=== PATIENT | female | born 1950 | race African-American/Black ===

== ENCOUNTER → 2024-04-23 | Outpatient (CLI) | payer OTHER, SELFPAY ==
[2024-04-23 10:46] LABS: Glucose Estimated Average 148 mg/dL (80-131); Hemoglobin A1C 6.8 % Hgb (4.8-6.0)
== END | disposition home or self-care (01) ==
LOC: COPL 09:59
PROVIDERS: PCP Family Medicine; Referring Provider Family Medicine; Visit Provider Family Medicine
DX: E11.9 Type 2 diabetes mellitus without complications (principal)
CPT/HCPCS: 36415; 83036

== ENCOUNTER → 2024-07-31 | Outpatient (CLI) | payer OTHER, SELFPAY ==
--- NOTE | 2024-07-31 11:00 | XR_ITS ---
Examination: Arterial duplex lower extremity study. Date and time of exam: July 31, 2024 1134 hours INDICATIONS: Bilateral leg discoloration pain 6 months week pole cyst left foot compared to right foot on examination one month ago Findings: Duplex sonographic imaging of the lower extremity arteries using B-mode/Soto scale imaging and Doppler spectral analysis and color flow. Ankle brachial indices have been recorded. Right common femoral artery demonstrates triphasic flow. Right superficial femoral artery demonstrates biphasic flow. Right popliteal artery demonstrates biphasic flow. Right posterior tibial artery demonstrated biphasic flow. Right ankle/brachial index is 1.0. Left common femoral artery demonstrates triphasic flow. Left superficial femoral artery demonstrates monophasic flow. Left popliteal artery demonstrates monophasic flow. Left posterior tibial artery demonstrated monophasic flow. Left ankle/brachial index is 0.7. Impression: Significant obstructive arterial disease left lower extremity
== END | disposition home or self-care (01) ==
PROVIDERS: PCP Family Medicine; Referring Provider Family Medicine; Visit Provider Family Medicine
DX: I77.89 Other specified disorders of arteries and arterioles (principal)
CPT/HCPCS: 93925

== ENCOUNTER → 2024-09-10 | Outpatient (CLI) | payer OTHER, SELFPAY ==
--- NOTE | 2024-09-10 11:12 | EKG_ITS ---
[facility] Test Date: 2024-09-10 Pat Name: HUNTER CERVANTES Department: Room: - Gender: Female Label Coder: MAURICE : 1950 Requested By: Petros Linder Order Number: [id number] Reading MD: Petros Linder Measurements Intervals [place] Rate: 87 P: 33 IA: 153 QRS: 36 QRSD: 80 T: 33 QT: 363 QTc: 438 Interpretive Statements SINUS RHYTHM LOW QRS VOLTAGE IN PRECORDIAL LEADS [QRS DEFLECTION < 1.0 mV IN CHEST LEADS] POSSIBLE ANTERIOR MYOCARDIAL INFARCTION , PROBABLY OLD [30 ms Q WAVE IN V3/V4, OR R < 0.2 mV IN V4] No previous ECG available for comparison /[id number]/[email or web address]/[id number].pdf
[2024-09-10 11:38] LABS: Partial Thromboplastin Time 28.3 Seconds (22.0-36.0); Prothrombin Time 10.9 Seconds (9.0-12.2)
[2024-09-10 11:39] LABS: Basophils % (Auto) 1 % (0-2.5); Eosinophils # (Auto) 0.1 Thou/mm3 (0.0-0.5); Eosinophils % (Auto) 2 % (0-10); Hematocrit 43.5 % (36.0-46.0); Hemoglobin 15.4 g/dL (12.0-16.0); Immature Granulocytes % (Auto) 0 % (0-0); Immature Granulocytes Auto 0.02 Thou/mm3 (0.00-0.00); Lymphocytes # (Auto) 2.3 Thou/mm3 (1.0-4.8); Lymphocytes % (Auto) 39 % (10-50); Mean Corpuscular HGB Conc 35.4 g/dl (31.0-37.0); Mean Corpuscular Hemoglobin 30.9 pg (25.0-35.0); Mean Corpuscular Volume 87 fL (80-100); Monocytes # (Auto) 0.7 Thou/mm3 (0.0-0.8); Monocytes % (Auto) 11 % (0-12); Neutrophils # (Auto) 2.7 Thou/mm3 (1.8-7.7); Neutrophils % (Auto) 47 % (37-80); Nucleated Red Blood Cell % 0 /100 WBC (0); Platelet Count 235 Thou/mm3 (140-440); RDW Standard Deviation 43.4 fL (36.4-46.3); Red Blood Count 4.99 Miln/mm3 (4.00-5.20); White Blood Count 5.8 Thou/mm3 (3.6-11.0)
[2024-09-10 11:48] LABS: Alanine Aminotransferase 14 U/L (10-49); Albumin, Serum 4.7 gm/dL (3.4-4.8); Albumin/Globulin Ratio 1.8 (1.2-2.2); Alkaline Phosphatase 60 U/L (46-116); Anion Gap 9 (7-16); BUN/Creatinine Ratio 18 Ratio (12-20); Bilirubin,Total 0.5 mg/dL (0.3-1.2); Blood Urea Nitrogen 22 mg/dL (9-23); Calcium 10.1 mg/dL (8.3-10.6); Calcium (Corrected) 10.1 mg/dL (8.5-10.1); Carbon Dioxide 30.3 mMol/L (20.0-31.0); Chloride 105 mMol/L (98-107); Creatinine (Component) 1.2 mg/dL (0.6-1.3); Globulin 2.6 gm/dL (2.3-3.5); Glucose 112 mg/dL (74-106); Osmolality,Calculated 291 (275-295); Potassium 4.4 mMol/L (3.4-5.1); Sodium 144 mMol/L (136-145); Total Protein 7.3 gm/dL (5.7-8.2); eGFR 48 See Note
== END | disposition home or self-care (01) ==
LOC: COPL 10:38
PROVIDERS: PCP Family Medicine; Referring Provider Student in an Organized Health Care Education/Training Program; Visit Provider Student in an Organized Health Care Education/Training Program
DX: Z01.818 Encounter for other preprocedural examination (principal); I73.9 Peripheral vascular disease, unspecified; Z79.01 Long term (current) use of anticoagulants
CPT/HCPCS: 36415; 80053; 85025; 85610; 85730; 93005

== ENCOUNTER → 2025-01-13 | Outpatient (CLI) | payer OTHER, SELFPAY ==
[2025-01-13 11:04] LABS: Basophils # (Auto) 0.0 Thou/mm3 (0.0-0.2); Basophils % (Auto) 1 % (0-2.5); Eosinophils # (Auto) 0.2 Thou/mm3 (0.0-0.5); Eosinophils % (Auto) 2 % (0-10); Hematocrit 45.8 % (36.0-46.0); Hemoglobin 15.5 g/dL (12.0-16.0); Immature Granulocytes Auto 0.08 Thou/mm3 (0.00-0.00); Lymphocytes # (Auto) 1.9 Thou/mm3 (1.0-4.8); Lymphocytes % (Auto) 26 % (10-50); Mean Corpuscular HGB Conc 33.8 g/dl (31.0-37.0); Mean Corpuscular Hemoglobin 30.2 pg (25.0-35.0); Mean Corpuscular Volume 89 fL (80-100); Monocytes # (Auto) 0.7 Thou/mm3 (0.0-0.8); Monocytes % (Auto) 10 % (0-12); Neutrophils # (Auto) 4.6 Thou/mm3 (1.8-7.7); Neutrophils % (Auto) 61 % (37-80); Nucleated Red Blood Cell # 0.00 Thou/mm3 (0.00-0.00); Nucleated Red Blood Cell % 0 /100 WBC (0); Platelet Count 216 Thou/mm3 (140-440); RDW Standard Deviation 45.8 fL (36.4-46.3); Red Blood Count 5.14 Miln/mm3 (4.00-5.20); White Blood Count 7.5 Thou/mm3 (3.6-11.0)
[2025-01-13 11:20] LABS: Glucose Estimated Average 137 mg/dL (80-131); Hemoglobin A1C 6.4 % Hgb (4.8-6.0)
[2025-01-13 11:24] LABS: Alanine Aminotransferase 15 U/L (10-49); Albumin, Serum 4.3 gm/dL (3.4-4.8); Albumin/Globulin Ratio 1.7 (1.2-2.2); Alkaline Phosphatase 59 U/L (46-116); Anion Gap 12 (7-16); Aspartate Amino Transferase 22 U/L (0-34); BUN/Creatinine Ratio 11 Ratio (12-20); Bilirubin,Total 0.3 mg/dL (0.3-1.2); Blood Urea Nitrogen 11 mg/dL (9-23); Calcium 9.7 mg/dL (8.3-10.6); Calcium (Corrected) 9.7 mg/dL (8.5-10.1); Carbon Dioxide 27.3 mMol/L (20.0-31.0); Cardiac Risk Estimate 2.9 RATIO (3.7-5.6); Chloride 103 mMol/L (98-107); Cholesterol 154 mg/dL (132-200); Creatinine (Component) 1.0 mg/dL (0.6-1.3); Globulin 2.6 gm/dL (2.3-3.5); Glucose 113 mg/dL (74-106); HDL Cholesterol 53 mg/dL (40-60); LDL Cholesterol,Calculated 77 mg/dL (0-130); Magnesium 1.9 mg/dL (1.6-2.6); Osmolality,Calculated 283 (275-295); Potassium 4.5 mMol/L (3.4-5.1); Sodium 142 mMol/L (136-145); Total Protein 6.9 gm/dL (5.7-8.2); Triglycerides 121 mg/dL (30-150); eGFR 59 See Note
[2025-01-13 11:25] LABS: Creatinine MALB Rnd Ur 115 mg/dL (30-125); Microalbumin Creat Ratio 4 mg/gCrea (<30); Microalbumin, Random Urine 5 mg/L (0-300)
== END | disposition home or self-care (01) ==
LOC: COPL 10:06
PROVIDERS: PCP Internal Medicine; Referring Provider Internal Medicine; Visit Provider Internal Medicine
DX: E03.9 Hypothyroidism, unspecified (principal); I10 Essential (primary) hypertension; E11.9 Type 2 diabetes mellitus without complications; Z79.899 Other long term (current) drug therapy
CPT/HCPCS: 36415; 80053; 80061; 82043; 82570; 83036; 83735; 85025

== ENCOUNTER → 2025-02-12 | Outpatient (CLI) | payer OTHER, SELFPAY ==
--- NOTE | 2025-02-12 12:51 | XR_ITS ---
Examination: Lumbar spine, 5 views Technique: Lumbar spine AP, lateral, coned lateral lower lumbar spine, bilateral obliques 5 views Exam date and time: February 12, 2025, 1315 hours INDICATIONS: Lower back pain 1 month. FINDINGS: Severe osteopenia Advanced diffuse facet arthropathy No lumbar fracture Mild lumbar spondylosis Mild to moderate diffuse lumbar degenerative disc disease IMPRESSION: Mild to moderate diffuse lumbar degenerative disc disease
--- NOTE | 2025-02-12 13:45 | XR_ITS ---
Examination: Screening digital mammography, bilateral Computer aided detection 3-D breast Tomosynthesis, bilateral Date and time of exam: February 12, 2025, 1239 hours, compared to mammograms dating to January 09, 2018 Indication: Screening Technique: Nonmagnified MLO, CC views of the breasts to been obtained, reconstructed from 3-D Tomosynthesis images. R2 computer aided detection program utilized for evaluation of suspicious masses and/or abnormal calcifications. 3-D Tomosynthesis images obtained. Findings: Scattered areas of fibroglandular density. Benign calcifications. No interval suspicious masses Impression: BI-RADS category II: Benign Findings. Recommend 1 year follow-up mammogram.
== END | disposition home or self-care (01) ==
PROVIDERS: PCP Internal Medicine; Referring Provider Internal Medicine; Visit Provider Internal Medicine
DX: Z12.31 Encounter for screening mammogram for malignant neoplasm of breast (principal); R92.323 Mammographic fibroglandular density, bilateral breasts; R92.1 Mammographic calcification found on diagnostic imaging of breast; M51.360 Other intervertebral disc degeneration, lumbar region with discogenic back pain only
CPT/HCPCS: 72110; 77063; 77067

== ENCOUNTER 2025-02-22 11:15 | Emergency (ER) | payer OTHER, SELFPAY ==
--- NOTE | 2025-02-22 12:07 | XR_ITS ---
EXAMINATION: US venous doppler LE RT HISTORY: r/o dvt COMPARISON: None. FINDINGS: Tirado scale, color doppler, and spectral waveforms of the right lower extremity veins. The imaged veins are unremarkable without evidence of internal thrombus. Spectral Doppler imaging demonstrates normal wave forms. The overlying soft tissues are unremarkable. IMPRESSION: Negative for deep venous thrombosis.
[2025-02-22 12:08] VITALS: BP 128/81; PULSE 100; RESP 18; TEMP 36.6; O2SAT 98
[2025-02-22 12:09] VITALS: BMI 33.8
--- NOTE | 2025-02-22 12:09 | PD.EDRME ---
Rapid Medical Screening Exam RME Arrival date/time: 02/22/25 11:15 74-year-old female with a history of hypertension, hypothyroidism, presents to the emergency room with a chief complaint of right lower extremity swelling and tenderness x 3 days. Patient was sent to the emergency room by her primary care provider to rule out DVT. I have greeted and performed a focused initial assessment of this patient. A comprehensive ED assessment and evaluation of the patient, analysis of all test results, and completion of the medical decision making process will be conducted by additional ED providers. Chief Complaint: Extremity Injury, Lower Time Seen by Provider: 02/22/25 11:28 Vital signs reviewed by provider: No Exam: Right lower extremity tenderness and swelling. Negative Homans Clear bilateral lung sounds no shortness of breath Clinical Impression: DVT/cellulitis/leg pain
[2025-02-22 12:50] LABS: Basophils # (Auto) 0.0 Thou/mm3 (0.0-0.2); Basophils % (Auto) 0 % (0-2.5); Eosinophils # (Auto) 0.0 Thou/mm3 (0.0-0.5); Eosinophils % (Auto) 1 % (0-10); Hematocrit 50.6 % (36.0-46.0); Hemoglobin 17.5 g/dL (12.0-16.0); Immature Granulocytes Auto 0.02 Thou/mm3 (0.00-0.00); Lymphocytes # (Auto) 2.3 Thou/mm3 (1.0-4.8); Lymphocytes % (Auto) 35 % (10-50); Mean Corpuscular HGB Conc 34.6 g/dl (31.0-37.0); Mean Corpuscular Hemoglobin 29.8 pg (25.0-35.0); Mean Corpuscular Volume 86 fL (80-100); Monocytes # (Auto) 0.8 Thou/mm3 (0.0-0.8); Monocytes % (Auto) 12 % (0-12); Neutrophils # (Auto) 3.4 Thou/mm3 (1.8-7.7); Neutrophils % (Auto) 52 % (37-80); Nucleated Red Blood Cell # 0.00 Thou/mm3 (0.00-0.00); Nucleated Red Blood Cell % 0 /100 WBC (0); Platelet Count 230 Thou/mm3 (140-440); RDW Standard Deviation 43.3 fL (36.4-46.3); Red Blood Count 5.87 Miln/mm3 (4.00-5.20); White Blood Count 6.5 Thou/mm3 (3.6-11.0)
[2025-02-22 13:07] LABS: Alanine Aminotransferase 15 U/L (10-49); Albumin, Serum 5.1 gm/dL (3.4-4.8); Albumin/Globulin Ratio 1.7 (1.2-2.2); Alkaline Phosphatase 60 U/L (46-116); Anion Gap 10 (7-16); Aspartate Amino Transferase 23 U/L (0-34); BUN/Creatinine Ratio 13 Ratio (12-20); Bilirubin,Total 0.7 mg/dL (0.3-1.2); Blood Urea Nitrogen 15 mg/dL (9-23); Calcium 9.8 mg/dL (8.3-10.6); Calcium (Corrected) 9.8 mg/dL (8.5-10.1); Carbon Dioxide 29.8 mMol/L (20.0-31.0); Chloride 98 mMol/L (98-107); Creatinine (Component) 1.2 mg/dL (0.6-1.3); Estimated Creatinine Clearance 39.7 mL/min (>60); Globulin 3.0 gm/dL (2.3-3.5); Glucose 114 mg/dL (74-106); INR 1.0 (0.9-1.3); Osmolality,Calculated 277 (275-295); Partial Thromboplastin Time 25.4 Seconds (22.0-36.0); Potassium 4.0 mMol/L (3.4-5.1); Prothrombin Time 10.6 Seconds (9.0-12.2); Sodium 138 mMol/L (136-145); Total Protein 8.1 gm/dL (5.7-8.2); eGFR 48 See Note
--- NOTE | 2025-02-22 13:48 | EDNOTE_ITS ---
ED General RME/HPI General Chief complaint: Extremity Injury, Lower Stated complaint: R) LEG PAIN; R/O DVT; SENT BY PROVIDER Time Seen by Provider: 02/22/25 11:28 Arrival date/time: 02/22/25 11:15 CC: Right leg pain for approximately several days, patient said localized pain is a 3-4 out of 10 scale. Patient states she has had surgery on her left leg but not on her right. Patient states she was referred by her doctor to rule out a clot. Patient denies numbness tingling in the leg denies any fever chills was able to ambulate with a walker without complication. RME / HPI RME / HPI narrative: 02/22/25 11:15 74-year-old female with a history of hypertension, hypothyroidism, presents to the emergency room with a chief complaint of right lower extremity swelling and tenderness x 3 days. Patient was sent to the emergency room by her primary care provider to rule out DVT. I have greeted and performed a focused initial assessment of this patient. A comprehensive ED assessment and evaluation of the patient, analysis of all test results, and completion of the medical decision making process will be conducted by additional ED providers. Exam: Right lower extremity tenderness and swelling. Negative Homans Clear bilateral lung sounds no shortness of breath Impression: DVT/cellulitis/leg pain Related Data Home Medications ?Medication ?Instructions ?Recorded ?Confirmed Levothyroxine * (SYNTHROID *) 50 mcg PO QDAY #0 tabs 0 11/13/13 09/21/20 hydrochlorothiazide 25 mg tablet 25 mg PO QAM #0 tabs 10/19/15 09/21/20 Previous Rx's ?Medication ?Instructions ?Recorded meloxicam 7.5 mg tablet 7.5 mg PO QDAY #10 tabs 01/31 07/24 Allergies Allergy/AdvReac Type Severity Reaction Status Date / Time DATES FRUIT Allergy Severe WHOLE BODY Uncoded 02/22/25 11:18 ITCHING Review of Systems Review of Systems Narrative Review of Systems: GEN: No fever, no chills, no weight loss EYES: No discharge, no visual changes, no pain HEENT: No ear pain, no congestion, no sore throat PULM: No shortness of breath, no cough, no congestion CV: No chest pain, no dyspnea on exertion, no palpitations GI: No nausea, no vomiting, no diarrhea, no pain, no constipation : No frequency, no urgency, no dysuria MUSC/SKEL: No joint pain, no back pain SKIN: No rash PSYCH: No hallucinations, no depression HEME/LYMPH: No easy bleeding or bruising tendencies NEURO: No weakness, no headache Past Medical History Past Medical History NEUROLOGIC: Negative Neurological Disorders or Seizures CARDIAC: Positive Cardiac Disorders, Congestive Heart Failure and Hypertension RESPIRATORY: Negative Chronic Obstructive Pulmonary Disease (COPD) GASTROINTESTINAL: Positive Gastrointestinal Disorders and Obesity GENITOURINARY: Negative Genitourinary Disorders or Renal Disease MUSCULOSKELETAL: Positive Musculoskeletal Disorders and Arthritis ENT: Positive Cataracts (bilat) ENDOCRINE: Positive Endocrine Disorders and Hypothyroidism; Negative Diabetes Mellitus Type 1 or Diabetes Mellitus Type 2 HEMATOLOGIC: Negative Blood Disorders OTHER HISTORY: Positive Hospitalization and Falls; Negative Autoimmune Disease, Blood Transfusions, Anesthesia Reactions or Cancer Surgical History SURGICAL: Positive Joint Replacement (bilat) and Section Social History SMOKING STATUS: Never smoker ED Exam Narrative Physical exam: [General: Obese not in in any acute distress Head normocephalic HEENT: Within acceptable limits Neck is supple nontender Chest equal chest rise nontender to palpation Respiratory: Clear to auscultation no wheezes crackles or rubs CV: Rate rhythm is regular no murmurs rubs or clicks Abdomen is distended secondary to body habitus soft nontender no masses positive bowel sounds all 4 quadrants Back: No CVA tenderness no spinous process tenderness from cervical spine thoracic and lumbar spine Skin: Intact no petechiae rash induration ulceration or crepitus Extremities: Mild tenderness to the medial thigh of the right leg, also mild tenderness to the gastric mimickers and soleus muscles. Moving all other extremities against resistance cap refill less than 2 seconds neurosensory intact Neuro: Awake alert oriented x3 Glascow coma 15 no focal deficits] Course Quality Measures none Orders Category Date Time Status US venous doppler LE RT Stat Exams 02/22/25 12:07 Completed CBC Stat Lab 02/22/25 12:31 Completed CMP [Comprehensive Metabolic Panel] Stat Lab 02/22/25 12:31 Completed PT [Prothrombin Time with INR] Stat Lab 02/22/25 12:31 Completed PTT [Partial Thromboplastin Time] Stat Lab 02/22/25 12:31 Completed Ketorolac Inj [Toradol Inj] Med 02/22/25 13:47 Once 15 mg IM X1 ONE Vital Signs Vital signs: Vital Signs Temperature 97.9 F 02/22/25 12:08 Pulse Rate 100 02/22/25 12:08 Respiratory Rate 18 02/22/25 12:08 Blood Pressure 128/81 02/22/25 12:08 Pulse Oximetry (%) 98 02/22/25 12:08 Oxygen Delivery Method Room Air 02/22/25 12:08 Discharge Plan Plan Patient Disposition: HOME (Self Care) Patient condition on transfer: Stable Prescriptions/Referrals Prescriptions/Med Rec: New meloxicam 7.5 mg tablet 7.5 mg PO QDAY Qty: 10 0RF No Action Levothyroxine * (SYNTHROID *) 50 MCG tablet 50 mcg PO QDAY Qty: 0 hydrochlorothiazide 25 MG tablet 25 mg PO QAM Qty: 0 Referrals: Micheal Nolan [Primary Care Provider] - In 1 week Problem List Clinical Impression: Leg pain Patient/Caregiver Discharge Instructions Education Materials: ED Pain, Acute, Uncertain Cause Additional Instructions: Follow-up with your primary care doctor if there is worsening of symptoms return the emergency room for reevaluation. Print Language: Burmese Stand Alone Forms: Marlen Award Info., Patient Portal Info Letter, Work/School Release PA/[employer] Supervising Physician PA/[employer] Supervising Physician: Blu George ENP [facility] Clinical Information Provided by: patient Medical Records reviewed [facility] Meds/Rx considered, not ordered None Labs/Rad/Tests considered, not ordered None Chronic Illness/Social Conditions Explain: Recent left lower extremity surgery EKG EKG not done Labs Labs: interpreted by il Lab(s) Interpretation(s): CBC shows no acute leukocytosis the patient is hemoconcentrated with a hemoglobin of 17.5 and hematocrit of 50.6. No thrombocytopenia Coags within acceptable limits CMP shows no significant electrolyte imbalances renal impairment transaminitis or T. bili elevation Imaging Imaging interpretation: interpreted by il Imaging Interpretation(s): Doppler of the right leg shows no DVT. Medication Administration(s) Medication Administration History Ketorolac Tromethamine (Ketorolac Inj 30 Mg/Ml Vial) 15 mg IM X1 ONE Stop: 02/22/25 13:48
[2025-02-22] MEDS: KETOROLAC INJ 30 MG/ML VIAL 15 MG IM (13:54)
== END 2025-02-22 14:00 | disposition home or self-care (01) ==
PROVIDERS: Nurse Practitioner Family; Emergency Provider Emergency Medicine; PCP Internal Medicine
DX: M79.604 Pain in right leg (principal)
CPT/HCPCS: 36415; 80053; 85025; 85610; 85730; 93971; 96372; 99283; J1885

== ENCOUNTER → 2025-03-10 | Outpatient (CLI) | payer OTHER, SELFPAY ==
--- NOTE | 2025-03-10 | XR_ITS ---
Examination: Right hip AP, lateral, AP pelvis 3 views Technique: Hip AP lateral, AP pelvis, 3 views Exam date and time: October 08, 2024, total 21 hours INDICATIONS: Right leg pain 8 years. FINDINGS: Bilateral total hip arthroplasties Satisfactory alignment No fractures No loosening of the prosthetic components Extensive ossification lateral to the left hip joint IMPRESSION: Bilateral total hip arthroplasties with satisfactory alignment.
[2025-03-10 13:20] LABS: Basophils # (Auto) 0.0 Thou/mm3 (0.0-0.2); Basophils % (Auto) 1 % (0-2.5); Eosinophils # (Auto) 0.1 Thou/mm3 (0.0-0.5); Eosinophils % (Auto) 1 % (0-10); Hematocrit 46.4 % (36.0-46.0); Hemoglobin 15.8 g/dL (12.0-16.0); Immature Granulocytes Auto 0.02 Thou/mm3 (0.00-0.00); Lymphocytes # (Auto) 2.1 Thou/mm3 (1.0-4.8); Lymphocytes % (Auto) 33 % (10-50); Mean Corpuscular HGB Conc 34.1 g/dl (31.0-37.0); Mean Corpuscular Hemoglobin 29.9 pg (25.0-35.0); Mean Corpuscular Volume 88 fL (80-100); Monocytes # (Auto) 0.7 Thou/mm3 (0.0-0.8); Monocytes % (Auto) 11 % (0-12); Neutrophils # (Auto) 3.5 Thou/mm3 (1.8-7.7); Neutrophils % (Auto) 54 % (37-80); Nucleated Red Blood Cell # 0.00 Thou/mm3 (0.00-0.00); Nucleated Red Blood Cell % 0 /100 WBC (0); Platelet Count 240 Thou/mm3 (140-440); RDW Standard Deviation 46.0 fL (36.4-46.3); Red Blood Count 5.28 Miln/mm3 (4.00-5.20); White Blood Count 6.5 Thou/mm3 (3.6-11.0)
[2025-03-10 13:34] LABS: Alanine Aminotransferase 20 U/L (10-49); Albumin, Serum 4.9 gm/dL (3.4-4.8); Albumin/Globulin Ratio 1.6 (1.2-2.2); Alkaline Phosphatase 63 U/L (46-116); Anion Gap 10 (7-16); Aspartate Amino Transferase 22 U/L (0-34); BUN/Creatinine Ratio 16 Ratio (12-20); Bilirubin,Total 0.5 mg/dL (0.3-1.2); Blood Urea Nitrogen 18 mg/dL (9-23); Calcium 9.6 mg/dL (8.3-10.6); Calcium (Corrected) 9.6 mg/dL (8.5-10.1); Carbon Dioxide 28.8 mMol/L (20.0-31.0); Chloride 103 mMol/L (98-107); Creatinine (Component) 1.1 mg/dL (0.6-1.3); Globulin 3.0 gm/dL (2.3-3.5); Glucose 114 mg/dL (74-106); Magnesium 1.8 mg/dL (1.6-2.6); Osmolality,Calculated 286 (275-295); Potassium 4.3 mMol/L (3.4-5.1); Sodium 142 mMol/L (136-145); Total Protein 7.9 gm/dL (5.7-8.2); eGFR 53 See Note
== END | disposition home or self-care (01) ==
LOC: CDIM 11:46 → COPL 12:38
PROVIDERS: PCP Internal Medicine; Referring Provider Internal Medicine; Visit Provider Internal Medicine
DX: M25.551 Pain in right hip (principal); Z96.643 Presence of artificial hip joint, bilateral; I73.9 Peripheral vascular disease, unspecified; N18.31 Chronic kidney disease, stage 3a; M79.605 Pain in left leg
CPT/HCPCS: 36415; 73502; 80053; 83735; 85025